=== PATIENT | female | born 1945 | race Caucasian/White ===

== ENCOUNTER 2024-07-20 02:55 | Inpatient (IN) ==
[2024-07-20] MEDS ORDERED: nitroGLYCERIN DRIP 25,000 MCG/250 ML BTL ONE (03:52)
[2024-07-20] MEDS: nitroGLYCERIN DRIP 25,000 MCG/250 ML BTL IV SCH (04:03)
[2024-07-20 04:08] LABS: ABS Basophils 0.1 10^3/uL (0.0-0.1); ABS Lymphocytes 0.2 10^3/uL (1.0-4.8); ABS Monocytes 0.3 10^3/uL (0.0-0.9); ABS Neutrophils 12.9 10^3/uL (1.5-7.6); Hematocrit 31.2 % (35-45); Lymphocyte % 1.8 %; Mean Corpuscular Hemoglobin 28.7 pg (27-33); Mean Corpuscular Hgb Conc 32.1 g/dL (31-36); Mean Corpuscular Volume 89.4 fL (80-97); Mean Platelet Volume 8.9 fL (7.5-11.2); Platelet Count 272 10^3/uL (150-450); Red Blood Count 3.49 10^6/uL (3.63-4.92); Red Cell Distribution Width 14.5 % (12-17); White Blood Count 13.5 10^3/uL (3.8-11.8)
[2024-07-20 04:45] LABS: Calcium 8.3 mg/dL (8.6-10.3); Creatinine, Serum 6.11 mg/dL (0.51-0.95); Potassium 5.1 mmol/L (3.5-5.0); eGFR CKD-EPI 6.4 (>60)
[2024-07-20] MEDS ORDERED: Dextrose 50% Syringe 50 ml 25 GM/50 ML SYRINGE IV PUSH PRN (06:07)
[2024-07-20] MEDS: cefTRIAXone 1 gm/50 mL D5W 1 GM/50 ML BAG IV SCH (07:31)
[2024-07-20] MEDS ORDERED: NS 0.9% 1000 ml BAG 200 ML IV PRN (07:51)
[2024-07-20] MEDS ORDERED: NS 0.9% 1000 ml BAG 100 ML IV PRN (07:51)
[2024-07-20] MEDS ORDERED: Albumin Human 25% 25 GM/100 ML BTL IV PRN (07:51)
[2024-07-20] MEDS: Insulin GLARGINE 100 un/ml 10 ml VIAL SUBCUT SCH (10:49)
[2024-07-20] MEDS: metroNIDAZOLE IV 500 MG/100ML 500 MG/100 ML BAG IVPB SCH ×2 (10:55→23:08)
[2024-07-20 11:48] LABS: High Sensitivity Troponin 1 Hr 52 pg/mL (<15)
[2024-07-20] MEDS: Heparin 1,000 UNIT/ML 10 ml (10,000 UNITS) CATHLAB/DIALYSIS DIALYSIS PRN (13:00)
[2024-07-20 14:30] LABS: Hepatitis B Surface Antigen Nonreactive (Nonreactive)
[2024-07-20 14:48] LABS: Hepatitis B Surface Ab Not Immune (Immune)
[2024-07-21] MEDS: PTO:Brimonidine/Timolol 0.2%/0.5% OPTH(NF) SOL 5 ML BOTH EYES SCH (09:48)
[2024-07-21] MEDS: PILOCARPINE 2% BOTH EYES SCH (09:48)
[2024-07-21] MEDS: OPTH BOTH EYES SCH ×2 (09:48→12:12)
[2024-07-21] MEDS: DORZOLAMIDE 2% BOTH EYES SCH (12:12)
[2024-07-21 14:57] VITALS: BP 146/49
[2024-07-21] MEDS ORDERED: Latanoprost 0.005% 2.5 ml BTL BOTH EYES SCH (21:00)
== END 2024-07-21 18:04 | disposition home or self-care (01) | DRG 871 ==
LOC: ED 02:55 → EDHOLD 05:03 → SUATTDRO 05:03 → MEDTELE 11:38
PROVIDERS: ADMIT Internal Medicine; ATTEND Internal Medicine